=== PATIENT | female | born 1960 | race Caucasian/White ===

== ENCOUNTER 2024-05-07 18:21 | Emergency (ER) | payer MEDICARE, SELFPAY ==
[2024-05-07 18:21] VITALS: BP 149/97; PULSE 100; RESP 18; TEMP 36.3; O2SAT 100
[2024-05-07] MEDS: Ondansetron ODT 4 MG Tablet PO (18:40)
[2024-05-07] MEDS: Morphine 4 MG/ML Syringe IM ×2 (18:41→20:08)
--- NOTE | 2024-05-07 18:44 | EX.ED.DYSGE1 ---
HPI <LUIS Alvarez - Last Filed: 05/07/24 20:23> History of Present Illness Chief Complaint: Lower Extremity Injury Narrative Narrative: Patient is a 63-year-old female with history of hyperlipidemia presents to the emergency department with right knee, right hip pain while playing pickle ball. Patient states she went to get the ball, when she jumped landing on her right knee, then after it giving out, she landed on the right hip. Patient denies any head or neck injury. Patient on arrival is crying, she states she is in a significant amount of pain. PFSH <LUIS Alvarez - Last Filed: 05/07/24 20:23> [facility] Home Medications ?Medication ?Instructions ?Recorded ?Last Taken ?Type ondansetron 4 mg disintegrating 4 mg PO Q8H PRN PRN Nausea #10 tabs 05/07/24 Unknown Rx tablet oxycodone-acetaminophen 5 mg-325 1 tab PO Q6H PRN pain 3 days #12 05/07/24 Unknown Rx mg tablet (Percocet) tabs Allergy/AdvReac Type Severity Reaction Status Date / Time No Known Allergies Allergy Verified 05/07/24 18:22 Social History Smoking Status: Never smoker ROS <LUIS Alvarez - Last Filed: 05/07/24 20:23> ROS ED ROS Narrative Constitutional: Negative for fever, chills, weight loss, weakness Eyes: Negative for vision loss, vision change, double vision ENT: Negative for any sore throat, ear pain, congestion Cardiovascular: Negative for any chest pain, tightness, palpitations Respiratory: Negative for any cough, sputum production, hemoptysis, dyspnea, dyspnea on exertion, orthopnea Gastrointestinal: Negative for any abdominal pain, nausea, vomiting, diarrhea, constipation, blood in stool, blood in vomit : Negative for any urinary frequency, dysuria, retention, blood in urine Muscle skeletal: Negative for any neck pain, back pain. Pain to right hip, right knee Neurological: Negative for any headache, syncope, dizziness Skin: Negative for any rashes, itching, abrasions, lacerations Psychiatric: Negative for any depression, anxiety, stress, suicidal ideation, homicidal ideation Hematologic: Negative for any excessive bruising, easy bleeding EXAM <LUIS Alvarez - Last Filed: 05/07/24 20:23> Physical Exam Narrative Exam Narrative: Vital signs reviewed. Patient appears to be in mild to moderate amount of pain to the right hip, right knee. Most the pain is surrounding the right knee. HEET: Head normocephalic atraumatic, TMs clear bilaterally. Posterior pharynx is clear, moist mucous membranes. Nares clear bilaterally. Neck: Supple with no lymphadenopathy or tenderness. No signs of meningismus. Cardiac: Regular rate and rhythm no murmurs gallops or rubs, equal peripheral pulses bilaterally. Respiratory: Lungs clear to auscultation bilaterally. No chest tenderness. Abdomen: Soft, nontender, nondistended. No abdominal bruit or pulsatile masses. No hepatosplenomegaly Extremities: Patient has her knee bent with a pillow underneath. Patient is unable to lift her leg up, she is unable to straighten her knee. At this time, I do believe the patient is unable to do it secondary to significant amount of pain. Patient has no obvious deformity. There is no obvious effusion. I am unable to get a proper exam secondary to the patient's pain and her ability to move the knee. Neuro: Cranial nerves II through XII intact, no focal neurological deficits. Skin: Clean dry and intact with no rash, purpura, petechiae, vesicles or pustules. Backs/flank: No CVA tenderness, no midline spinal tenderness, no deformity. Psych: Normal mood and affect. No SI, HI or acute psychosis. Const Vital Signs: 05/07/24 18:21 05/07/24 20:36 Temperature 97.3 F L 98.1 F Temperature Source Temporal Pulse Rate 100 69 Respiratory Rate 18 16 Blood Pressure 149/97 H 132/74 H Blood Pressure Mean 114 93 Pulse Ox 100 99 Oxygen Delivery Method Room Air Positive well nourished and well developed General Appearance ED: well developed <Dr. Darrell Jimenes DO - Last Filed: 05/07/24 23:01> Physical Exam Const Vital Signs: 05/07/24 18:21 05/07/24 20:36 Temperature 97.3 F L 98.1 F Temperature Source Temporal Pulse Rate 100 69 Respiratory Rate 18 16 Blood Pressure 149/97 H 132/74 H Blood Pressure Mean 114 93 Pulse Ox 100 99 Oxygen Delivery Method Room Air MDM <LUIS Alvarez - Last Filed: 05/07/24 20:23> MDM Radiography Diagnostic Testing: Clinical Impression(s) from Imaging Studies Hip/Pelvis X-Ray 05/07/24 19:00 IMPRESSION: No acute fracture or malalignment. 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 Electronically Signed: Homer Allen MD at 19:37 EDT , Knee X-Ray 05/07/24 19:00 IMPRESSION: Acute comminuted and mildly displaced tibial plateau fracture. Recommend CT. Electronically Signed: Homer Allen MD at 19:35 EDT , Treatment and Re-Evaluation :: Differential diagnosis includes however is not limited to: Patellar fracture, right hip fracture, right hip contusion, knee sprain, knee joint effusion, knee internal derangement Patient appears to be in no obvious respiratory distress, patient's vital signs are stable, patient does appear to be in moderate amount of distress secondary to pain to the right knee. Patient will receive x-rays of the right knee, right hip. All radiologic examinations were read, reviewed by the emergency department attending. From these reads, a plan of care will be put in place. Patient will receive IM morphine, oral Zofran and will be reevaluated. Patient's x-rays of the right hip shows no acute fracture or malalignment. Moderate to severe degenerative changes of bilateral hips. Patient's x-ray of the right knee shows acute comminuted and mildly displaced tibial plateau fracture. Secondary to the patient's history of having an orthopod out of state. This we placed on a disc. Patient will be placed in a knee immobilizer, crutches. She be given pain medicine for home. She will need to follow-up with her orthopod that she is established with at home. On reevaluation, the patient still does not have an extensor mechanism to the right knee. I am concerned for quadricep tendon rupture. Patient received x-ray on a disc. She will be given an oral Percocet here. Patient will need to follow-up outpatient. To be given a knee immobilizer and crutches. She instructed return if any other problems arise however she will be in [place] following up with her orthopod. <Dr. Darrell Jimenes, DO - Last Filed: 05/07/24 23:01> MDM Radiography Diagnostic Testing: Clinical Impression(s) from Imaging Studies Hip/Pelvis X-Ray 05/07/24 19:00 IMPRESSION: No acute fracture or malalignment. 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 Electronically Signed: Homer Allen MD at 19:37 EDT , Knee X-Ray 05/07/24 19:00 IMPRESSION: Acute comminuted and mildly displaced tibial plateau fracture. Recommend CT. Electronically Signed: Homer Allen MD at 19:35 EDT , Treatment and Re-Evaluation :: Differential diagnosis includes however is not limited to: Patellar fracture, right hip fracture, right hip contusion, knee sprain, knee joint effusion, knee internal derangement Patient appears to be in no obvious respiratory distress, patient's vital signs are stable, patient does appear to be in moderate amount of distress secondary to pain to the right knee. Patient will receive x-rays of the right knee, right hip. All radiologic examinations were read, reviewed by the emergency department attending. From these reads, a plan of care will be put in place. Patient will receive IM morphine, oral Zofran and will be reevaluated. Patient's x-rays of the right hip shows no acute fracture or malalignment. Moderate to severe degenerative changes of bilateral hips. Patient's x-ray of the right knee shows acute comminuted and mildly displaced tibial plateau fracture. Secondary to the patient's history of having an orthopod out of state. This we placed on a disc. Patient will be placed in a knee immobilizer, crutches. She be given pain medicine for home. She will need to follow-up with her orthopod that she is established with at home. On reevaluation, the patient still does not have an extensor mechanism to the right knee. I am concerned for quadricep tendon rupture. Patient received x-ray on a disc. She will be given an oral Percocet here. Patient will need to follow-up outpatient. To be given a knee immobilizer and crutches. She instructed return if any other problems arise however she will be in [place] following up with her orthopod. Attending note: Patient seen and evaluated with food and beverage server. I perform my own [id number] evaluation. I agree with the plan of work-up. Right knee injury and right hip pain while playing pickle ball. She was taking hard steps when she felt pain. She is visiting from [place]. She has an orthopedist there. Exam negative logroll unable to extend the knee with swelling at the quadriceps tendon. Tender at the proximal tibia. Skin intact. Soft compartments. 3 view right hip and pelvis along with 2 views tib-fib TURP myself and read by radiology the tibial plateau fracture there is no hip fracture. Clinical quadriceps rupture on exam. Patient with no contraction of her quadriceps tendon. Knee immobilizer placed crutches. Images on a disc. Prescription for pain. She will follow-up with her orthopedist back in [place] for outpatient evaluation and further management. All questions were answered. Discharge Plan Triage Chief Complaint: Lower Extremity Injury ED Midlevel Provider: Oscar Stein ED Provider: Darrell Jimenes Dx/Rx/DC Orders Clinical Impression: Closed fracture of tibial plateau, Quadriceps tendon rupture Instructions: ED Fracture, Knee, ED Muscle Strain, Extremity, ED Quadriceps Tendon Rupture, ED Knee Sprain Ligaments Prescriptions: New oxycodone-acetaminophen [Percocet] 5-325 mg tablet 1 tab PO Q6H PRN (Reason: pain) 3 Days Qty: 12 0RF ondansetron 4 mg tablet,disintegrating 4 mg PO Q8H PRN PRN (Reason: Nausea) Qty: 10 0RF Primary Care Provider: PHYLLIS JOHNSON Referrals: PHYLLIS JOHNSON [Other] Activity Restrictions/Additional Instructions: You need to follow-up with your orthopedic surgeon when you get home. You have a tibial plateau fracture of the right knee, you also are showing signs of a quadricep rupture. Stay in the knee immobilizer. Use the pain medicine. Ice and elevate. Print Language: [place]ian Disposition Disposition: Home, Self Care Discharge Date/Time: 05/07/24 20:57
--- NOTE | 2024-05-07 19:00 | RAD_ITS ---
INDICATION: fall EXAMINATION/TECHNIQUE: X-RAY - RIGHT XR Hip Unilateral with Pelvis when performed; 2-3 Views COMPARISON: None. FINDINGS: No acute fracture or malalignment. No blastic or lytic lesions. 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 Soft tissue swelling of the right hip. RAD/HIP, UNI W/ Pelvis 2-3 Views IMPRESSION: No acute fracture or malalignment. 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 Electronically Signed: Homer Allen MD at 19:37 EDT ,
--- NOTE | 2024-05-07 19:00 | RAD_ITS ---
INDICATION: fall EXAMINATION/TECHNIQUE: X-RAY - RIGHT XR Knee Complete 4 Views or More COMPARISON: None. FINDINGS: Acute comminuted and mildly displaced tibial plateau fracture. Mild tricompartmental joint space narrowing and osteophytosis. Small joint effusion. Soft tissue swelling of the knee. RAD/Knee 4 or More Views IMPRESSION: Acute comminuted and mildly displaced tibial plateau fracture. Recommend CT. Electronically Signed: Homer Allen MD at 19:35 EDT ,
[2024-05-07] MEDS: oxyCODONE 5 MG Tablet PO (20:35)
[2024-05-07 20:36] VITALS: BP 132/74; PULSE 69; RESP 16; TEMP 36.7; O2SAT 99
== END 2024-05-07 20:57 | disposition home or self-care (01) ==
PROVIDERS: Emergency Provider Emergency Medicine; Visit Provider Emergency Medicine
DX: S82.141A Displaced bicondylar fracture of right tibia, initial encounter for closed fracture (principal); E78.5 Hyperlipidemia, unspecified; S70.11XA Contusion of right thigh, initial encounter; X58.XXXD Exposure to other specified factors, subsequent encounter; Y93.89 Activity, other specified
CPT/HCPCS: 73502; 73564; 96372; 99284